=== PATIENT | female | born 1990 | race Caucasian/White ===

== ENCOUNTER 2016-06-19 20:33 | Emergency (ER) | payer OTHER ==
--- NOTE | 2016-06-19 21:27 | ED NURSING NOTES ---
Clinical Report - Nurses [facility] [address] [place] [address] 06/19/2016 20:35 Patient: SHAHIDA POSADA TRIAGE Triage time 2041. Acuity: LEVEL 3. Chief Complaint: (Pt in , stating that she had depo provera shot 2 weeks ago, and then started having abd cramping and spotting--passed some tissue 2 days ago, no additional bleeding or cramping since that time). --20:57 Joy Sutton R.N. 20:45 06/19/16. BP: 125/85. HR: 84. RR: 18. O2 saturation: 100%. Temp: 98.3 F. Pain level now: 8/10. Additional comments: migraine and neck pain (both chronic) , pelvic pain = 0/10. --20:57 Joy Sutton R.N. Weight: 59.8 kg stated. Height/Length: 61.2 inches Per Patient. BMI: 24.8. --20:48 Joy Sutton R.N. Medications Ibuprofen Oral 200 mg, daily (for cervical heniated discs). --20:54 Joy Sutton R.N. Naproxen Oral 550 mg, daily (migraines). --20:54 Joy Sutton R.N. Allergies Amoxicillin. Latex. Penicillins. --20:54 Joy Sutton R.N. History Arrived by private vehicle. Historian: patient. Accompanied by family. Primary physician (kari). ( Pt states she had a negative preg teest before depo provera was given). PAST MEDICAL HX: Last normal menstrual period- 05/13. OB history: G 1; P 0; Ab 1. SOCIAL HX: Never smoker. No alcohol use or drug use. --20:57 Joy Sutton R.N. PROBLEMS: Anxiety Reaction. --20:53 Joy Sutton R.N. Migraine Headache. Herniated Disk. --20:56 Joy Sutton R.N. ADDITIONAL SURGERIES: Dental Work. Tonsillectomy. --20:53 Joy Sutton R.N. Interventions ID band on patient. To treatment room. --20:57 Joy Sutton R.N. PHYSICAL ASSESSMENT 20:45. Ambulatory to room. Patient gowned. GENERAL / NEURO / PSYCH: Alert. Oriented X 4. Appears anxious. RESPIRATORY: Respirations not labored. CVS: Capillary refill less than 2 seconds. GI / : Abdomen soft. No vaginal bleeding. No vaginal discharge. SKIN: Skin is warm and dry. --21:13 Joy Sutton R.N. NURSING PROGRESS NOTES 20:45. Patient gowned. Head of bed elevated. Reassurance given. Patient identifiers checked. Call light placed in reach. Side rails up. Bed placed in lowest position. Patient ready for evaluation- chart flagged. --21:10 Joy Sutton R.N. 20:55. Patient ID band checked for patient name and birthdate: patient confirmed urine collected with return of yellow-colored clear urine; sample sent to lab. Specimen labeled in the presence of the patient (POC preg = Negative). --21:11 Joy Sutton R.N. 21:05. PELVIC EXAM: Pelvic exam performed by IMAGING CENTER MANAGER. Assisted by one nurse. Preparation: pelvic tray; patient placed in lithotomy position. Procedure: speculum exam. No vaginal discharge noted. No vaginal bleeding noted. No specimens collected. Status post-procedure: she was stable. Total time of assist / procedure: 15 minutes. --21:12 Joy Sutton R.N. DISPOSITION / DISCHARGE 21:25. Condition at departure: unchanged and stable. No learning barriers present. Discharge instructions provided and reviewed with the patient. Reviewed medication(s) (tylenol or motrin as needed). Patient verbalized understanding. Written instructions provided in Sami. The patient was discharged home and accompanied by parent. She left the Emergency Department ambulatory and via private vehicle. Spouse driving. --21:39 Joy Sutton R.N. 21:25 06/19/16. BP: deferred. HR: deferred. RR: deferred. O2 saturation: deferred. Temp: deferred. Pain level now: 0/10. --21:39 Joy Sutton R.N. Locked/Released at 06/19/2016 21:40 by Joy Sutton R.N.
--- NOTE | 2016-06-19 21:27 | ED CLINICAL REPORT ---
Clinical Report - Physicians/Mid Levels [facility] [address] [place] [address] 06/19/2016 20:35 Patient: SHAHIDA POSADA Time Seen: 20:50; initial patient contact, initial documentation, patient care assumed. Arrived- By private vehicle. Historian- patient. HISTORY OF PRESENT ILLNESS Chief Complaint: VAGINAL BLEEDING. This started about 4 days days ago and still present but is improving. The symptoms are described as moderate. Modifying factors. Not worsened by anything. Not relieved by anything. The patient has had mild, crampy pelvic pain, described as "pain", with vaginal bleeding (no pain now). She has had abnormal bleeding described as heavier than normal period and passing clots and tissue has not had period in over a year since starting depo. She has been using control. She is not or postmenopausal. No abdominal pain, vaginal pain, low back pain, flank pain or vaginal discharge. No pain with urination, urinary frequency, urgency of urination or hematuria. Sexually active- unprotected sex and heterosexual. No exposure to sexually transmitted disease. control measures utilized (depo). Denies current . Similar symptoms previously: None. Recent medical care: The patient was seen recently in a clinic. ( had depo shot x2 wks ago). REVIEW OF SYSTEMS All systems otherwise negative, except as recorded above. PAST HISTORY See nurses notes. ( PROBLEMS: Anxiety Reaction. --20:53 Joy Sutton RDeanna. Migraine Headache. Herniated Disk. --20:56 Joy Sutton RPriscillaN. ADDITIONAL SURGERIES: Dental Work. Tonsillectomy. --20:53 Joy Sutton R.N.). SOCIAL HISTORY Never smoker. No alcohol use or drug use. No recent travel. Is a local resident. FAMILY HISTORY Negative. ADDITIONAL NOTES The nursing notes have been reviewed with agreement regarding the chief complaint, HPI, ROS, PMH and patient medications and allergies. PHYSICAL EXAM Vital Signs: 06/19/2016 20:45 BP: 125/85. HR: 84. RR: 18. O2 saturation: 100%. Temp: 98.3 F. Pain level now: 12/09. Have been reviewed as normal and appear to be correct. Appearance: Alert. Oriented X3. No acute distress. HEENT: Normal external inspection. ENT: Pharynx normal. Neck: Neck supple. CVS: Heart sounds normal. Respiratory: No respiratory distress. Breath sounds normal. Chest nontender. Abdomen: Soft and nontender. Bowel sounds normal. No organomegaly. No mass. Back: Normal external inspection. : External inspection normal. Speculum exam abnormal. Slight vaginal bleeding, consisting of dark blood, via the cervical os. No vaginal bleeding from a cervical lesion or vaginal laceration. Bimanual exam normal. Skin: Skin warm and dry. Normal skin color. No rash. Normal skin turgor. (pt has scars on B wrists and forearms that resemble self mutilation cuts). Extremities: Extremities nontender. No lower extremity edema. Neuro: Oriented X 3. Mood/affect normal. No motor deficit. No sensory deficit. PROGRESS AND PROCEDURES Course of Care: pt brought clot with her that she passed x3 days ago in ziplock bag, that she had put in the freezer, contents examined and appeared like normal clot from period pt has wale guidelines for txing chronic conditions, and #6 er visits, see report for full details nurse reporting poc hcg neg. Patient counseled in person regarding the patient's stable condition and diagnosis. 21:27. Differential Diagnosis: I considered vaginitis, vaginal polyps, vaginal lesion, vaginal cancer, vulvar infection, ovarian cysts, pelvic inflammatory disease, endometriosis, uterine fibroids, intrauterine , ectopic , incomplete , retained products of and endometritis as a possible cause of vaginal bleeding in this patient. This is a partial list of diagnoses considered. Above considerations are based on history, physical exam and laboratory data. Differential diagnosis was discussed with patient. Disposition: Discharged home in good and unchanged condition. Condition: good and stable. CLINICAL IMPRESSION Mild dysfunctional uterine bleeding. No menorrhagia or metrorrhagia. INSTRUCTIONS Do not work today. Warnings: GENERAL WARNINGS: Return or contact your physician immediately if your condition worsens or changes unexpectedly, if not improving as expected, or if other problems arise. Specifically return if problem worsens. Follow-up: Follow up with your doctor in about three days even if well. Call for an appointment. Summary of care provided to patient. Understanding of the discharge instructions verbalized by patient. (Electronically signed by Ilana Dunn A.R.N.P. 06/19/2016 22:23)
--- NOTE | 2016-06-19 21:27 | ED NURSING NOTES ---
Clinical Report - Nurses [facility] [address] [place] [address] 06/19/2016 20:35 Patient: SHAHIDA POSADA TRIAGE Triage time 2041. Acuity: LEVEL 3. Chief Complaint: (Pt in , stating that she had depo provera shot 2 weeks ago, and then started having abd cramping and spotting--passed some tissue 2 days ago, no additional bleeding or cramping since that time). --20:57 Joy Sutton R.N. 20:45 06/19/16. BP: 125/85. HR: 84. RR: 18. O2 saturation: 100%. Temp: 98.3 F. Pain level now: 8/10. Additional comments: migraine and neck pain (both chronic) , pelvic pain = 0/10. --20:57 Joy Sutton R.N. Weight: 59.8 kg stated. Height/Length: 61.2 inches Per Patient. BMI: 24.8. --20:48 Joy Sutton R.N. Medications Ibuprofen Oral 200 mg, daily (for cervical heniated discs). --20:54 Joy Sutton R.N. Naproxen Oral 550 mg, daily (migraines). --20:54 Joy Sutton R.N. Allergies Amoxicillin. Latex. Penicillins. --20:54 Joy Sutton R.N. History Arrived by private vehicle. Historian: patient. Accompanied by family. Primary physician (kari). ( Pt states she had a negative preg teest before depo provera was given). PAST MEDICAL HX: Last normal menstrual period- 05/13. OB history: G 1; P 0; Ab 1. SOCIAL HX: Never smoker. No alcohol use or drug use. --20:57 Joy Sutton R.N. PROBLEMS: Anxiety Reaction. --20:53 Joy Sutton R.N. Migraine Headache. Herniated Disk. --20:56 Joy Sutton R.N. ADDITIONAL SURGERIES: Dental Work. Tonsillectomy. --20:53 Joy Sutton R.N. Interventions ID band on patient. To treatment room. --20:57 Joy Sutton R.N. PHYSICAL ASSESSMENT 20:45. Ambulatory to room. Patient gowned. GENERAL / NEURO / PSYCH: Alert. Oriented X 4. Appears anxious. RESPIRATORY: Respirations not labored. CVS: Capillary refill less than 2 seconds. GI / : Abdomen soft. No vaginal bleeding. No vaginal discharge. SKIN: Skin is warm and dry. --21:13 Joy Sutton R.N. NURSING PROGRESS NOTES 20:45. Patient gowned. Head of bed elevated. Reassurance given. Patient identifiers checked. Call light placed in reach. Side rails up. Bed placed in lowest position. Patient ready for evaluation- chart flagged. --21:10 Joy Sutton R.N. 20:55. Patient ID band checked for patient name and birthdate: patient confirmed urine collected with return of yellow-colored clear urine; sample sent to lab. Specimen labeled in the presence of the patient (POC preg = Negative). --21:11 Joy Sutton R.N. 21:05. PELVIC EXAM: Pelvic exam performed by PIN CLEANER. Assisted by one nurse. Preparation: pelvic tray; patient placed in lithotomy position. Procedure: speculum exam. No vaginal discharge noted. No vaginal bleeding noted. No specimens collected. Status post-procedure: she was stable. Total time of assist / procedure: 15 minutes. --21:12 Joy Sutton R.N. DISPOSITION / DISCHARGE 21:25. Condition at departure: unchanged and stable. No learning barriers present. Discharge instructions provided and reviewed with the patient. Reviewed medication(s) (tylenol or motrin as needed). Patient verbalized understanding. Written instructions provided in Spanish. The patient was discharged home and accompanied by parent. She left the Emergency Department ambulatory and via private vehicle. Spouse driving. --21:39 Joy Sutton R.N. 21:25 06/19/16. BP: deferred. HR: deferred. RR: deferred. O2 saturation: deferred. Temp: deferred. Pain level now: 0/10. --21:39 Joy Sutton R.N. Locked/Released at 06/19/2016 21:40 by Joy Sutton R.N.
--- NOTE | 2016-06-19 21:28 | ED ORDER SUMMARY ---
..... Patient: SHAHIDA POSADA OrderSheet [facility] VisitID: [id number] [address] [place] [address] 26y, F Registration Date/Time: 06/19/2016 ORDER SHEET Weight: 59.8 kg (stated) Allergies: Amoxicillin, Latex, Penicillins GENERAL ORDERS: POC - Urine hCG (21:12 06/19/2016 DDean R.N. per protocol) (21:12 DDean R.N.) MEDICATION ORDERS: IV FLUIDS: ORDER SHEET NOTES: [Electronically signed by Joy Sutton R.N. (21:40 06/19/2016)] [Electronically signed by Ilana DunnNPriscillaPPriscilla (22:23 06/19/2016)] [Electronically locked/signed by Joy Sutton R.N. (21:40 06/19/2016)]
--- NOTE | 2016-06-19 21:28 | ED ORDER SUMMARY ---
..... Patient: SHAHIDA POSADA OrderSheet [facility] VisitID: [id number] [address] [place] [address] 26y, F Registration Date/Time: 06/19/2016 ORDER SHEET Weight: 59.8 kg (stated) Allergies: Amoxicillin, Latex, Penicillins GENERAL ORDERS: POC - Urine hCG (21:12 06/19/2016 DDean R.N. per protocol) (21:12 DDean R.N.) MEDICATION ORDERS: IV FLUIDS: ORDER SHEET NOTES: [Electronically signed by Joy Sutton R.N. (21:40 06/19/2016)] [Electronically signed by Ilana DunnNPriscillaPPriscilla (22:23 06/19/2016)] [Electronically locked/signed by Joy Sutton R.N. (21:40 06/19/2016)]
--- NOTE | 2016-06-19 22:23 | ED DISCHARGE INSTRUCTIONS ---
Patient: SHAHIDA POSADA General Instructions [facility] VisitID: [id number] [place] [address] 26y, F Registration Date/Time: 06/19/2016 Mild dysfunctional uterine bleeding. No menorrhagia or metrorrhagia. INSTRUCTIONS Do not work today. Warnings: GENERAL WARNINGS: Return or contact your physician immediately if your condition worsens or changes unexpectedly, if not improving as expected, or if other problems arise. Specifically return if problem worsens. Follow-up: Follow up with your doctor in about three days even if well. Call for an appointment. Summary of care provided to patient. Understanding of the discharge instructions verbalized by patient. ADDITIONAL INFORMATION Irregular Vaginal Bleeding This is a condition in which bleeding occurs at unexpected times of the month. The bleeding may be heavier or fire sprinkler designer than usual. Heavy bleeding may lead to anemia. If severe enough, anemia may cause you to look pale and feel weak or fatigued. You might have shortness of breath even with little exertion. The female hormones produced in your body every month may be out of balance. This imbalance leads to bleeding. Causes could include an ovarian cyst, emotional stress, pelvic infection. Failure to ovulate during your last cycle may also cause this problem. Home Care: If bleeding is heavy, rest and avoid heavy exertion. You may use acetaminophen (Tylenol) or ibuprofen (Motrin, Advil) to control pain, unless another pain medicine was prescribed. [NOTE: If you have chronic liver or kidney disease or ever had a stomach ulcer or GI bleeding, talk with your doctor before using these medicines.] Iron supplements may be prescribed for anemia. It takes about 4-6 weeks for the iron to correct the anemia. Take the medicine as directed. See your doctor for a repeat blood test after you finish the iron treatment. If hormones were prescribed to control your bleeding, take them exactly as directed. If you were prescribed a medicine called Provera (medroxyprogesterone), the bleeding should stop while you are taking it. Another period will start a few days after you finish the medicine. Follow Up with your doctor, or as advised, within the next 1-2 days if heavy bleeding continues. Otherwise, follow up within the next 1-2 weeks. Get Prompt Medical Attention if any of the following occur: Bleeding becomes heavy (soaking one pad an hour for three hours) Fever of 100.4F (38C) or higher, or as directed by your healthcare provider Increase in abdominal pain Weakness, dizziness or fainting You have been given the following additional information: Dysfunctional Uterine Bleeding Do not work today. (Electronically signed by Ilana Dunn A.R.N.P. 06/19/2016 22:23)
--- NOTE | 2016-06-19 22:23 | ED MAR SUMMARY ---
..... Medication Administration Record [facility] [address] [place] [id number] Patient: SHAHIDA POSADA Visit ID: [id number] 26y, F Weight: 59.8 kg Height/Length: 61.2 in BMI: 24.8 ALLERGIES: Amoxicillin, Latex, Penicillins
--- NOTE | 2016-06-19 22:23 | ED MAR SUMMARY ---
..... Medication Administration Record [facility] [address] [place], [place] [id number] Patient: SHAHIDA POSADA Visit ID: [id number] 26y, F Weight: 59.8 kg Height/Length: 61.2 in BMI: 24.8 ALLERGIES: Amoxicillin, Latex, Penicillins
--- NOTE | 2016-06-19 22:23 | ED DISCHARGE INSTRUCTIONS ---
Patient: SHAHIDA POSADA General Instructions [facility] VisitID: [id number] [place] [address] 26y, F Registration Date/Time: 06/19/2016 Mild dysfunctional uterine bleeding. No menorrhagia or metrorrhagia. INSTRUCTIONS Do not work today. Warnings: GENERAL WARNINGS: Return or contact your physician immediately if your condition worsens or changes unexpectedly, if not improving as expected, or if other problems arise. Specifically return if problem worsens. Follow-up: Follow up with your doctor in about three days even if well. Call for an appointment. Summary of care provided to patient. Understanding of the discharge instructions verbalized by patient. ADDITIONAL INFORMATION Irregular Vaginal Bleeding This is a condition in which bleeding occurs at unexpected times of the month. The bleeding may be heavier or convex grinder operator than usual. Heavy bleeding may lead to anemia. If severe enough, anemia may cause you to look pale and feel weak or fatigued. You might have shortness of breath even with little exertion. The female hormones produced in your body every month may be out of balance. This imbalance leads to bleeding. Causes could include an ovarian cyst, emotional stress, pelvic infection. Failure to ovulate during your last cycle may also cause this problem. Home Care: If bleeding is heavy, rest and avoid heavy exertion. You may use acetaminophen (Tylenol) or ibuprofen (Motrin, Advil) to control pain, unless another pain medicine was prescribed. [NOTE: If you have chronic liver or kidney disease or ever had a stomach ulcer or GI bleeding, talk with your doctor before using these medicines.] Iron supplements may be prescribed for anemia. It takes about 4-6 weeks for the iron to correct the anemia. Take the medicine as directed. See your doctor for a repeat blood test after you finish the iron treatment. If hormones were prescribed to control your bleeding, take them exactly as directed. If you were prescribed a medicine called Provera (medroxyprogesterone), the bleeding should stop while you are taking it. Another period will start a few days after you finish the medicine. Follow Up with your doctor, or as advised, within the next 1-2 days if heavy bleeding continues. Otherwise, follow up within the next 1-2 weeks. Get Prompt Medical Attention if any of the following occur: Bleeding becomes heavy (soaking one pad an hour for three hours) Fever of 100.4F (38C) or higher, or as directed by your healthcare provider Increase in abdominal pain Weakness, dizziness or fainting You have been given the following additional information: Dysfunctional Uterine Bleeding Do not work today. (Electronically signed by Ilana Dunn A.R.N.P. 06/19/2016 22:23)
--- NOTE | 2016-06-19 22:24 | ED MED RECONCILIATION SUMMARY ---
Patient: SHAHIDA POSADA Medication Reconciliation Report [facility] VisitID: [id number] [address] [place] [address] 26y, F Registration Date/Time: 06/19/2016 Weight: 59.8 kg Height/Length: (not available) BMI: 24.8 ALLERGIES: Amoxicillin, Latex, Penicillins The patient's Home Medications are listed below: THE FOLLOWING MEDICATIONS NEED TO BE RECONCILED: Ibuprofen Oral 200 mg, daily, for cervical heniated discs Naproxen Oral 550 mg, daily, migraines The source(s) of the original Home Medication information: Not obtained. The following Medications were given to the patient in the Emergency Department: None. The following Medications were prescribed to the patient: None.
--- NOTE | 2016-06-19 22:24 | ED MED RECONCILIATION SUMMARY ---
Patient: SHAHIDA POSADA Medication Reconciliation Report [facility] VisitID: [id number] [address] [place] [place] [address] 26y, F Registration Date/Time: 06/19/2016 Weight: 59.8 kg Height/Length: (not available) BMI: 24.8 ALLERGIES: Amoxicillin, Latex, Penicillins The patient's Home Medications are listed below: THE FOLLOWING MEDICATIONS NEED TO BE RECONCILED: Ibuprofen Oral 200 mg, daily, for cervical heniated discs Naproxen Oral 550 mg, daily, migraines The source(s) of the original Home Medication information: Not obtained. The following Medications were given to the patient in the Emergency Department: None. The following Medications were prescribed to the patient: None.
== END 2016-06-19 21:25 | disposition home or self-care (01) ==
LOC: ED SRH 20:33
DX: N93.8 Other specified abnormal uterine and vaginal bleeding (principal)